=== PATIENT | female | born 1950 | race Caucasian/White ===

== ENCOUNTER → 2017-08-17 | Outpatient (CLI) | payer MEDICARE, BC | LOC: LAB.R 08:00 | PROVIDERS: ATTEND Obstetrics & Gynecology | DX: N89.9 Noninflammatory disorder of vagina, unspecified (principal); R80.9 Proteinuria, unspecified | CPT/HCPCS: 87086; 87480; 87510; 87660 ==

== ENCOUNTER 2017-12-28 15:17 | Outpatient (CLI) | payer MEDICARE, BC | END 2017-12-28 23:59 | disposition home or self-care (01) | LOC: LAB.R 15:17 | PROVIDERS: ATTEND Obstetrics & Gynecology | DX: D64.9 Anemia, unspecified (principal); R82.99 Other abnormal findings in urine | CPT/HCPCS: 81001; 87086 ==

== ENCOUNTER 2017-12-28 15:40 | Outpatient (CLI) | payer BC, MEDICARE ==
[2017-12-28 15:56] LABS: BASOPHILS # (AUTO) 0.1 10^3/uL (0.0-0.1); BASOPHILS % (AUTO) 0.5 %; EOSINOPHILS # (AUTO) 0.2 10^3/uL (0.0-0.7); EOSINOPHILS % (AUTO) 1.7 %; HGB - HEMOGLOBIN 12.8 g/dL (12.0-16.0); LYMPHOCYTES # (AUTO) 1.7 10^3/uL (1.5-3.5); LYMPHOCYTES % (AUTO) 14.4 %; MEAN CORPUSCULAR HEMOGLOBIN 27.1 pg (27.0-31.0); MEAN CORPUSCULAR HGB CONC 33.2 g/dL (32.0-36.0); MEAN CORPUSCULAR VOLUME 81.7 fL (81.0-99.0); MEAN PLATELET VOLUME 6.8 fL (7.9-10.8); MONOCYTES # (AUTO) 0.7 10^3/uL (0.0-1.0); MONOCYTES % (AUTO) 5.6 %; NEUTROPHILS # (AUTO) 9.1 10^3/uL (1.5-6.6); NEUTROPHILS % (AUTO) 77.8 %; PLT - PLATELET COUNT 331 10^3/uL (130-450); RED BLOOD COUNT 4.71 10^6/uL (4.20-5.40); RED CELL DISTRIBUTION WIDTH 13.6 % (12.0-15.0); WHITE BLOOD COUNT 11.7 x10^3/uL (4.8-10.8)
== END 2017-12-28 15:41 | disposition home or self-care (01) ==
LOC: LAB 15:40
PROVIDERS: ATTEND Obstetrics & Gynecology
DX: R82.99 Other abnormal findings in urine (principal); D64.9 Anemia, unspecified
CPT/HCPCS: 81001; 85025; 87086

== ENCOUNTER 2018-01-24 11:36 | Outpatient (CLI) | payer BC, MEDICARE ==
--- NOTE | 2018-01-24 14:48 | Ultrasound Report ---
Procedure Date: 01/24/2018 Accession Number: [id number] / [id number] Procedure: US - Pelvic w/Transvaginal CPT Code: FULL RESULT: EXAM: PELVIC ULTRASOUND EXAM DATE: 01/24/2018 12:34 PM. CLINICAL HISTORY: POSTMENOPAUSAL BLEEDING. Polyp removed 3 months ago COMPARISON: None. TECHNIQUE: Realtime transabdominal pelvic scan performed to identify the uterus and adnexa and as an overview of other pelvic structures, followed by transvaginal scan to provide greater detail of the uterus and adnexa, with static image documentation. FINDINGS: Uterus: 7.7 x 4.1 x 5 cm, volume 82.6 cc. Anteverted position. Normal overall size and echotexture. Masses: None. Endometrium: 8.9 mm. There is a complex avascular fluid collection within the endometrial canal measuring 2.1 x 0.8 x 2.3 cm. Cervix: Unremarkable. Right Ovary: 1.7 x 1.2 x 2 cm, volume 2.1 cc. Normal echotexture and blood flow. Left Ovary: 2.5 x 1.2 x 1.3 cm, volume 2 cc. Normal echotexture and blood flow. Free Fluid: None. Other: None. IMPRESSION: Complex 2.1 x 0.8 x 2.3 cm fluid collection within the endometrial canal with endometrial echo thickness 8.9 mm. Otherwise negative pelvic ultrasound. [facility]
== END 2018-01-24 11:37 | disposition home or self-care (01) ==
LOC: DI 11:36
PROVIDERS: ATTEND Obstetrics & Gynecology
DX: N95.0 Postmenopausal bleeding (principal)
CPT/HCPCS: 76830; 76856

== ENCOUNTER 2023-07-10 08:00 | Outpatient (CLI) | payer MEDICARE ==
[2023-07-10 20:11] LABS: BILIRUBIN,URINE NEGATIVE (NEGATIVE); GLUCOSE, URINE (UA) 250 mg/dL (NEGATIVE); KETONES,URINE (UA) NEGATIVE (NEGATIVE); LEUKOCYTE ESTERASE, URINE MODERATE (NEGATIVE); NITRITE,URINE NEGATIVE (NEGATIVE); OCCULT BLOOD,URINE MODERATE (NEGATIVE); PROTEIN,URINE NEGATIVE (NEGATIVE); UROBILINOGEN,URINE 0.2 (NORMAL) E.U./dL (NORMAL)
[2023-07-10 20:25] LABS: BACTERIA,URINE Many /HPF (None Seen); CLARITY,URINE CLOUDY (CLEAR); RBC,URINE TNTC /HPF (0-5); SQUAMOUS EPITHELIAL CELL,UR FEW Squamous (<= Few); WBC CLUMPS,URINE PRESENT; WBC,URINE >25 /HPF (0-5)
== END 2023-07-10 23:59 | disposition home or self-care (01) ==
LOC: LAB.S 08:00
PROVIDERS: ATTEND Emergency Medicine
DX: R30.0 Dysuria (principal)
CPT/HCPCS: 81001; 87077; 87086; 87181

== ENCOUNTER 2024-02-27 08:00 | Outpatient (CLI) | payer MEDICARE ==
--- NOTE | 2024-02-28 16:48 | XRAY Report ---
PROCEDURE: Hand 3+V RT INDICATIONS: PAIN IN RIGHT HAND TECHNIQUE: 3 views of the hand(s) acquired. COMPARISON: None. FINDINGS: Bones: Acute, comminuted, mildly displaced, extra-articular fracture of the fifth proximal phalanx. Marked diffuse IP joint space narrowing, juxta-articular osteophytes and periarticular lucency. Moder ate first CMC and STT joint space narrowing and juxta-articular osteophytosis. Diffuse osseous demine ralization. No suspicious bony lesions. Soft tissues: No suspicious soft tissue calcifications or masses. Mild diffuse soft tissue swelling. IMPRESSION: 1.Acute, comminuted, mildly displaced, extra-articular fracture of the fifth proximal phalanx. 2.Marked diffuse IP joint space narrowing, juxta-articular osteophytes and periarticular lucency. Dif ferential includes degenerative versus inflammatory arthritis. 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 4.Diffuse osseous demineralization. Reviewed by: Anabella Aiken MD on 02/28/2024 4:47 PM PDT Approved by: Anabella Aiken MD on 02/28/2024 4:47 PM PDT Station ID: [id number]
== END 2024-02-27 23:59 | disposition home or self-care (01) ==
LOC: DI.S 08:00
PROVIDERS: ATTEND Physician Assistant
DX: M79.641 Pain in right hand (principal); S62.616A Displaced fracture of proximal phalanx of right little finger, initial encounter for closed fracture; M18.11 Unilateral primary osteoarthritis of first carpometacarpal joint, right hand